=== PATIENT | female | born 1980 | race Caucasian/White ===

== ENCOUNTER → 2022-11-11 09:15 | Outpatient (CLI) | payer OTHER, SELFPAY ==
--- NOTE | ~2022-11-11 | US_ITS ---
Thyroid ultrasound. Clinical History: Thyroid enlargement Findings: Real-time sonography of the thyroid gland was performed. The right lobe measures 4.5 x 1.8 x 2.2 cm. The left lobe measures 4.9 x 2.2 x 1.7 cm. The isthmus is 7 mm in AP diameter. Thyroid parenchyma is heterogeneous. There is a 1.4 x 1.1 x 1.4 cm probable isoechoic solid nodule at the posterior left lower pole. Impression: 1.4 cm TR-3 nodule at the left lower pole. Consider 12 month follow-up ultrasound.. Reviewed, dictated and finalized at location . Impression: 1.4 cm TR-3 nodule at the left lower pole. Consider 12 month follow-up ultrasou nd..
== END ==
PROVIDERS: PCP Family Medicine Sports Medicine; Visit Provider Chiropractor
DX: E04.9 Nontoxic goiter, unspecified (principal)
CPT/HCPCS: 76536

== ENCOUNTER 2024-07-01 17:49 | Emergency (ER) | payer OTHER, SELFPAY ==
[2024-07-01 17:50] VITALS: BP 213/102; PULSE 82; RESP 20; TEMP 36.3; O2SAT 100
--- NOTE | 2024-07-01 18:08 | ED.RECABL ---
HPI - Recheck/Abnormal Lab/Rx General Chief Complaint: Recheck/Abnormal Lab/Rx Stated Complaint: sent by PMD for HTN Time Seen by Provider: 07/01/24 18:02 Source: patient Mode of arrival: ambulatory Limitations: no limitations History of Present Illness HPI narrative: This is a 44-year-old female that presents to the emergency department for elevated blood pressure reading. Reports her blood pressures have been somewhat elevated in the past, but she has been trying to manage this with diet and exercise. She has not ever been on antihypertensives. Today her blood pressure was elevated at her gynecology appointment and they told her she should go to the ER for further evaluation. She does not have any symptoms currently. Denies chest pain, shortness of breath, headache. Related Data Allergies Allergy/AdvReac Type Severity Reaction Status Date / Time No Known Allergies Allergy Verified 07/01/24 17:49 Review of Systems Review of Systems: CONSTITUTIONAL: Denies fever CARDIOVASCULAR: Denies chest pain, or edema. RESPIRATORY: Denies dyspnea. NEUROLOGIC: Denies headache, numbness, or weakness. All systems reviewed & are unremarkable except as noted in HPI and below PMFSH Past Medical History Medical History (Updated 07/01/24 @ 19:23 by Shante Guzman PA-C) No active medical problems Social History Social History (Updated 07/01/24 @ 18:10 by Shante Guzman PA-C) Smoking status: Never smoker Exam Narrative: GENERAL: Well-appearing, well-nourished, and in no acute distress. HEAD: Normocephalic, atraumatic. EYES: EOMI. CHEST: Clear to auscultation. No respiratory distress. No wheezes rales or rhonchi HEART: Regular rate and rhythm. No murmur heard. Normal peripheral pulses. EXTREMITIES: Normal range of motion. No edema. SKIN: Warm, dry, no rash. NEURO: No focal deficits. Alert and oriented x3. PSYCH: Normal mood and affect Course Course Emergency Course: Patient updated on her workup and agrees with plan of care Consultations Consultation #1: Spoke with Dr. Frederick, PCP personal lines agent about patient and workup. Patient will be started on Losartan 25mg daily and will follow up in clinic. Date: 07/01/24 Vital Signs Vital signs: Vital Signs Temperature 97.4 F L 07/01/24 17:50 Pulse Rate 82 07/01/24 17:50 Respiratory Rate 20 07/01/24 17:50 Blood Pressure 213/102 H 07/01/24 17:50 Pulse Oximetry 100 07/01/24 17:50 Oxygen Delivery Room Air 07/01/24 17:50 Temperature 97.4 F L 07/01/24 17:50 Pulse Rate 84 07/01/24 18:30 Respiratory Rate 16 07/01/24 18:30 Blood Pressure 204/90 H 07/01/24 18:30 Pulse Oximetry 100 07/01/24 18:30 Oxygen Delivery Room Air 07/01/24 17:50 MDM - Recheck/Abnormal Lab/Rx MDM Narrative Medical decision making narrative: Patient presents to the ER for elevated blood pressure reading noted at gynecology office. Asymptomatic currently . No concerning findings on blood work or EKG. Spoke with Dr. Frederick, PCP personal lines agent about patient and workup. Patient will be started on Losartan 25mg daily and will follow up in clinic. She was given warnings to return to the ER Differential Diagnosis Differential diagnosis: Likely other (hypertension, elevated blood pressure reading, hypertensive urgency) Lab Data Attestation: I reviewed the patient's lab results. 07/01/24 18:20 07/01/24 18:20 Labs: Lab Results 07/01/24 Range/Units 18:20 WBC 7.4 (4.5-10.0) K/mm3 RBC 4.82 (4.2-5.4) M/mm3 Hgb 13.7 (12.0-15.0) g/dL Hct 40.7 (37.0-47.0) % MCV 84.4 (80-100) fl MCH 28.4 (26-34) pg MCHC 33.7 (32-36) g/dl RDW 14.0 (11.5-14.5) % Plt Count 337 (150-375) k/mm3 MPV 8.8 (7.4-10.4) fl Immature Gran % (Auto) 0.1 (0-0.5) % Neut % (Auto) 60.5 (45.5-73.1) % Lymph % (Auto) 30.5 (18.3-44.2) % [place] % (Auto) 6.8 (2.6-8.5) % Eos % (Auto) 1.6 (0-4.4) % Baso % (Auto) 0.5 (0.2-1.2) % Lymph # (Auto) 2.26 (0.9-3.2) K/mm3 [place] # (Auto) 0.5 (0.1-0.6) K/mm3 Eos # (Auto) 0.1 (0-0.3) K/mm3 Baso # (Auto) 0.0 (0.0-0.1) K/mm3 Abs Immat Gran (auto) 0.01 (0.00-0.031) K/mm3 Absolute Neuts (auto) 4.5 (1.3-6.7) K/mm3 Absolute Nucleated RBC 0.000 (0.0-0.012) K/mm3 Nucleated RBC % 0.0 (0.0-0.2) % Sodium 138 (137-145) mmol/L Potassium 3.7 (3.4-5.0) mmol/L Chloride 103 (98-107) mmol/L Carbon Dioxide 26 (22-30) mmol/L Anion Gap 9 (4-12) mmol/L BUN 12 (7-17) mg/dL Creatinine 0.65 L (0.7-1.0) mg/dL Estim Creat Clear Calc 90 ml/min Estimated GFR > 60 (59 - ) Glucose 138 H (65-110) mg/dL Calcium 9.1 (8.4-10.2) mg/dL Total Bilirubin 0.4 (0.2-1.3) mg/dL AST 23 (14-36) U/L ALT 26 (6-35) U/L Alkaline Phosphatase 86 (38-126) U/L Total Protein 8.0 (6.3-8.2) g/dL Albumin 4.5 (3.5-5.1) g/dL ECG Data EKG #1: ECG completion date: 07/01/24 EKG Interpretation: normal rate, sinus rhythm, no ST changes and normal QT Critical Care Time Critical Care Time Critical Care Time: No Discharge Plan Discharge Clinical Impression: Hypertension Qualifiers: Hypertension type: unspecified Qualified Code(s): I10 - Essential (primary) hypertension Patient Disposition: Home, Self-Care Condition: Improved Instructions: Hypertension (ED) Additional Instructions: Return to the emergency department if you experience fever, chest pain, shortness of breath, abdominal pain with nausea and vomiting, weakness, numbness, or any other symptoms that are concerning to you. Take losartan as prescribed Follow up with primary care doctor. Call in the morning to make an appointment Patient Language: Maori Prescriptions: New losartan 25 mg tablet 25 mg PO DAILY 30 Days Qty: 30 0RF Follow-up/Referrals: Radha,Malgorzata Crandall MD [Non-Staff] - Jcarlos Frederick MD [Physician] -
[2024-07-01 18:26] LABS: Basophils Percent Auto 0.5 % (0.2-1.2); Eosinophils Absolute Auto 0.1 K/mm3 (0-0.3); Eosinophils Percent Auto 1.6 % (0-4.4); Hematocrit 40.7 % (37.0-47.0); Hemoglobin 13.7 g/dL (12.0-15.0); Immature Granulocyte Absolute 0.01 K/mm3 (0.00-0.031); Immature Granulocyte Percent A 0.1 % (0-0.5); Lymphocytes Absolute Auto 2.26 K/mm3 (0.9-3.2); Lymphocytes Percent Auto 30.5 % (18.3-44.2); Mean Corpuscular HGB Conc 33.7 g/dl (32-36); Mean Corpuscular Hemoglobin 28.4 pg (26-34); Mean Corpuscular Volume 84.4 fl (80-100); Mean Platelet Volume 8.8 fl (7.4-10.4); Monocytes Absolute Auto 0.5 K/mm3 (0.1-0.6); Monocytes Percent Auto 6.8 % (2.6-8.5); Neutrophils Absolute Auto 4.5 K/mm3 (1.3-6.7); Neutrophils Percent Auto 60.5 % (45.5-73.1); Platelet Count Result 337 k/mm3 (150-375); Red Blood Count 4.82 M/mm3 (4.2-5.4); White Blood Count 7.4 K/mm3 (4.5-10.0)
[2024-07-01 18:30] VITALS: BP 204/90; PULSE 84; RESP 16; O2SAT 100
[2024-07-01 18:35] LABS: Alanine Aminotransferase 26 U/L (6-35); Albumin Level 4.5 g/dL (3.5-5.1); Alkaline Phosphatase 86 U/L (38-126); Anion Gap 9 mmol/L (4-12); Aspartate Amino Transferase 23 U/L (14-36); Bilirubin,Total 0.4 mg/dL (0.2-1.3); Blood Urea Nitrogen 12 mg/dL (7-17); Calcium 9.1 mg/dL (8.4-10.2); Carbon Dioxide 26 mmol/L (22-30); Chloride 103 mmol/L (98-107); Estimated CRCL calculation 90 ml/min; Estimated Glomerular Filt Rate > 60; Glucose 138 mg/dL (65-110); Potassium 3.7 mmol/L (3.4-5.0); Sodium 138 mmol/L (137-145)
[2024-07-01 19:20] VITALS: BP 163/90; PULSE 70; RESP 16; O2SAT 100
--- OUTSIDE RECORDS SUMMARY | 2024-07-03 20:15 | XMS_ITS | Referral Summary ---
Author Organization [facility] Address [address] [place] [address] Care Team Providers Care Astrobiologist Name Role Phone Malgorzata Garcia MD Primary Care Provider Encounters Date Type Department Care Team Description 07/01/2024 Nurse Triage [facility] Primary Care at [address] [address] Malgorzata Garcia MD from Last 3 Months Allergies Active Allergy Reactions Criticality Noted Date Comments Buspirone Nausea only Low 04/28/2022 Severe nausea Citalopram Nausea only Low 08/18/2020 Medications hydrOXYzine (ATARAX) 25 mg tabletIndicatio ns:anxiety Take 1 tablet (25 mg total) by mouth every 8 (eight) hours as needed for anxiety 60 tablet 2 1 Active diclofenac (CATAFLAM) 50 mg tabletIndicatio ns:Sebaceous cyst of right axilla Take 1 tablet (50 mg total) by mouth 3 (three) times a day 2 Active mometasone (ELOCON) 0.1 % ointmentIndicat ions:Poison rukhsana Apply topically daily To poison rukhsana rash. May need to apply for 2 weeks until allergic reaction resolves 45 g 1 3 Active Active Problems Problem Noted Date Diagnosed Date Elevated TSH 12/05/2022 Overview (12/05/2022): With high free t4. ?central hyperethyroidism Thyroid nodule 11/17/2022 Overview (11/17/2022): 1.4 cm TR 3 nodule of the left lower thyroid pole on thyroid ultrasound 11/11/2022 ordered by an outside provider. If no concerns with labs then recommendation would be 12 month follow-up ultrasound Sebaceous cyst of right axilla 04/13/2022 Prediabetes 08/18/2020 Overview (08/18/2020): 08/2020 - HgbA1c 6.4 Assessment & Plan (08/18/2020 4:41 PM MEDICAL PHYSICS RESEARCHER): 08/2020 - HgbA1c 6.4; glu 177 Drinks two Pepsis a day recommend at least 10 minutes of moderate intensity exercise most days of the week with a goal of 150 minutes weekly. For significant weight loss - recommend 250 minutes a week of moderate intensity exercise. Recommend fruits and vegetables, lean meats, and whole grains. Avoid all sugary beverages Try to limit processed foods. Avoid things in crinkly wrapping papers. Try for 3 healthy meals daily and watch portion sizes. Limit screen time (including T.V., tablet, computer, AND smart phone) to less than 2 hours daily Discussed consideration of starting metformin, but she declined Hypersomnia 08/18/2020 Assessment & Plan (08/18/2020 4:43 PM MEDICAL PHYSICS RESEARCHER): epworth score 8-9 persistent complaints of extreme daytime fatigue Discussed sleep study [email or web address]/patients/patient-resources/resources/remvlpx-gzzvt-up-a dults .pdf [email or web address].org/patients/patient-resources/resources/sleep-studies.pdf She will consider calling insurance to look into out of pocket expense Discussed sleep hygiene - no screen time within 1 hour of bed. Prehypertension 03/22/2020 Assessment & Plan (08/18/2020 4:40 PM MEDICAL PHYSICS RESEARCHER): Improved today, but still elevated Will continue to monitor Assessment & Plan (07/08/2020 5:12 PM MEDICAL PHYSICS RESEARCHER): BP still elevated. CBC, CMP normal 03/29/2020 other than glucose 120 mg/dl Patient continues to report controlled BP on home readings Assessment & Plan (05/04/2020 4:56 PM MEDICAL PHYSICS RESEARCHER): BP still elevated. CBC, CMP normal 03/29/2020 other than glucose 120 mg/dl STOP BANG score 2, although very clsoe to 3 as her BMI is 34. Discussed possibility with patient, but she does not think that she has BECKY. Provided handout for further information [email or web address]/patients/patient-resources/resources/obstructive-sleep- apnea -in-adults.pdf Assessment & Plan (03/22/2020 5:25 PM CDT): Stop OTC decongestant Antihistamine and steroid nose spray instead Labs today to eval blood count, renal fxn Follow-up for recehck Class 1 obesity due to exces s calories without serious comorbidity with body mass index (BMI) of 33.0 to 33.9 in adult 08/07/2017 Assessment & Plan (08/18/2020 4:02 PM MEDICAL PHYSICS RESEARCHER): Body mass index is 34.22 kg/m??. Discussed exercise, sleep hygiene, decreased salt intake Assessment & Plan (07/08/2020 5:09 PM MEDICAL PHYSICS RESEARCHER): discussed healthy diet, exercise and adequate sleep Body mass index is 34.6 kg/m??. Assessment & Plan (05/04/2020 4:53 PM MEDICAL PHYSICS RESEARCHER): Body mass index is 34.22 kg/m??. Discussed exercise, sleep hygiene, decreased salt intake Assessment & Plan (03/22/2020 4:02 PM CDT): discussed healthy diet, exercise and adequate sleep Body mass index is 33.73 kg/m??. Assessment & Plan (11/08/2017 3:54 PM CDT): Obesity is unchanged. Discussed the patient's BMI. The BMI is above average; BMI management plan is completed. General weight loss/lifestyle modification strategies discussed (elicit support from others; identify saboteurs; non-food rewards, etc). Body mass index is 31.18 kg/m??. Assessment & Plan (08/07/2017 3:48 PM MEDICAL PHYSICS RESEARCHER): Obesity is unchanged. Discussed the patient's BMI. The BMI is above average; BMI management plan is completed. General weight loss/lifestyle modification strategies discussed (elicit support from others; identify saboteurs; non-food rewards, etc). Body mass index is 30.99 kg/m??. Generalized anxiety disorder 04/26/2016 Assessment & Plan (08/18/2020 4:42 PM MEDICAL PHYSICS RESEARCHER): Symptoms limiting IADLs (has not driven for 10 years due to anxiety) Some improvement with buspirone, but has difficulty taking it twice daily Will add hydroxyzine I do think she should stay on the daily buspirone as her anxiety symptoms are severe Provided a list of counselors. She is hesitant due to cost Assessment & Plan (05/04/2020 4:55 PM MEDICAL PHYSICS RESEARCHER): Gastrointestinal side effects to celexa Buspirone started last office visit. Increased 04/13/2020 Patient has declined counseling No side effects to medication, but no positive effect either She declines further increase at this time Assessment & Plan (03/22/2020 5:24 PM CDT): Gastrointestinal side effects to celexa Will try buspirone Start low dose to avoid side effects Patient to call for any issues with medication or to increase dose. Assessment & Plan (09/22/2019 10:01 AM CDT): History of similar with good response to celexa Worse now with the current social situation. OK to continue the melatonin. Patient to call us if her symptoms worsen or do not improve Resolved Problems Problem Noted Date Diagnosed Date Resolved Date Chest wall pain 07/08/2020 04/28/2022 Assessment & Plan (08/18/2020 4:44 PM MEDICAL PHYSICS RESEARCHER): Onset last May 2020 or early Jun 2020 No injury Improving Unable to reproduce on exam. EKG, CXR normal Likely musculoskeletal monitor Assessment & Plan (07/08/2020 5:15 PM MEDICAL PHYSICS RESEARCHER): Left lower Acute onset, no injury or preceding URI No assoc N/V/D or GERD symptoms. Worse with leaning forward; better with laying down. EKG and CXR normal today DDx costochondritis; shingles w/out rash; thoracic radiculopathy; GERD; pleural effusion With normal CXR and no GI symptoms, will presume musculoskeletal and recommend trial of NSAIDs and heat/ice monitor Subclinical hypothyroidism 03/18/2020 0 12/05/2022 Assessment & Plan (08/18/2020 4:39 PM MEDICAL PHYSICS RESEARCHER): 03/17/2020 - TSH 8.940 (0.45 - 4.5); fT4 1.73 (0.82 - 1.77) 08/2020 - TSH 4.660 (H); fT4 1.45 (0.82 - 1.77) TPO Ab 230 (0 - 34) TSH is approaching normal Her fatigue could certainly be considered a symptom of hypothyroidism, but with her TSH only being mildly elevated, and the fT4 being normal, I do not think it is the cause I do recommend continuing to monitor Assessment & Plan (05/04/2020 4:54 PM MEDICAL PHYSICS RESEARCHER): 03/17/2020 - TSH 8.940 (0.45 - 4.5) fT4 1.73 (0.82 - 1.77) Discussed diagnosis Patient would like to recheck Assessment & Plan (03/22/2020 5:26 PM CDT): 03/17/2020 - TSH 8.940 (0.45 - 4.5) fT4 1.73 (0.82 - 1.77) Discussed diagnosis No medication indicated at this time Monitor annually Contact dermatitis 11/08/2017 Assessment & Plan (11/08/2017 3:54 PM CDT): Versus eczema Use the triamcinolone ointment 3 times a day every day for 10 days Keep area clean with a gentle soap The only thing that can touch that area on your forearm is petroleum jelly Call if there is no improvement or if there is worsening at any time Neck muscle spasm 08/07/2017 11/08/2017 Assessment & Plan (08/07/2017 9:31 PM MEDICAL PHYSICS RESEARCHER): High risk occupation Recommend ice OR heat to affected area. 20 minutes at a time, 2-3 times a day. NSAIDs Muscle relaxer Home stretching and strenghtening- handout given Consider PT if persistent. Non-smoker 04/26/2016 10/12/2017 Immunizations Name Administration Dates Next Due Influenza, Quadrivalent, Spl it, Preservative Free, Intradermal 03/11/2015 Influenza, Quadrivalent, Spl it, Preservative Free, Intramuscular 03/22/2020 Influenza, Unspecified 04/14/2022,2016(Deferred: Patient decision) Rho (D) Immune Globulin 07/13/2015 Tdap 05/13/2015 Social History Tobacco Use Types Packs/Day Years Used Date Smoking Tobacco: Never Smokeless Tobacco: Never Alcohol Use Standard Drinks/Week Comments No 0 (1 standard drink = 0.6 oz pur e alcohol) AUDIT-C Answer Date Recorded Q1: How often do you have a drink containing alcohol? Never 04/28/2022 Q2: How many drinks containi ng alcohol do you have on a typical day when you are drinking? Patient does not drink Q3: How often do you have si x or more drinks on one occasion? Never 04/28/2022 PHQ-2 Answer Date Recorded PHQ-2 Total Score (If total score is 3 or more points, staff should administer the PHQ-9) 0 04/28/2022 Personal Safety Answer Date Recorded Getting School Help Needed Not on file 05/26 Comments No Sex and Gender Information Value Date Recorded Sex Assigned at Not on file Legal Sex Female 4:12 AM MEDICAL PHYSICS RESEARCHER Gender Identity Not on file Sexual Orientation Not on file Last Filed Vital Signs Vital Sign Reading Time Taken Comments Blood Pressure 130/88 04/28/2022 10:03 AM MEDICAL PHYSICS RESEARCHER Pulse 77 04/28/2022 10:03 AM MEDICAL PHYSICS RESEARCHER Temperature 36.8 ??C (98.3 ??F) 08/31/2021 9:57 AM CD T Respiratory Rate 16 08/31/2021 9:57 AM CDT Oxygen Saturation 98% 08/31/2021 9:57 AM CDT Inhaled Oxygen Concentration - - Weight 79.4 kg (175 lb) 04/28/2022 10:03 AM MEDICAL PHYSICS RESEARCHER Height 154.9 cm (5' 1 ) 04/28/2022 10:03 AM MEDICAL PHYSICS RESEARCHER Body Mass Index 33.07 04/28/2022 10:03 AM MEDICAL PHYSICS RESEARCHER Plan of Treatment Not on file Insurance [facility] CHOICE PLUS [facility] CHO[facility] PLUS [facility] CHOICE PLUS Care Teams Astrobiologist Relationship Specialty Start Date End Date Malgorzata Garcia MD PCP - General Family Practice 04/28/22
--- OUTSIDE RECORDS SUMMARY | 2024-07-03 20:15 | XMS_ITS | Data Portability ---
Author Organization [facility] [place] Address [address] [place] [address] [address] Care Team Providers Care Fish Icer Name Role Phone HUGO LUIS Primary Care Provider Assessment Encounter Date Assessment Date Assessment LastModified by Organization Details LastModified Time 07/01/2024 07/01/2024 Annual gynecological exam performed. Patient will come back in a year unless there are new symptoms. Not available 06/26/2024 14:34:42 Plan of Treatment Reminders Order Date Submit Date Provider Last Modified By Organization Details Last Modified Time Details Appointments U/S SYSTEMS INTEGRATION ADVISOR COMPLET E 2024 03:00P M ULTRASOUND Not available Not available Not available Lab pap, IG + HR HPV - HPV regardl ess but if HPV is positiv e need subtypi ng 16,18/4 5 2024 025 [facility] ([facility]), [address], [place], [address], 07/01/2024 16:03:35 Referral None recorde d. Procedures None recorde d. Surgeries None recorde d. Imaging US, pelvis 2023 024 [email or web address] [place], [address], [place], [address], 03/11/2024 17:57:05 US, transva ginal 2023 024 [email or web address] [place], [address], [place], [address], 03/11/2024 17:57:05 MAMMO, screeni ng, digital , bilater al 2024 025 [facility], [address], [place], [address], 07/01/2024 16:18:53 US, pelvis, complet e 2024 025 [email or web address] Not available 07/02/2024 09:02:19 US, pelvis 2024 025 [email or web address] [place], [address], [place], [address], 07/03/2024 21:13:52 US, transva ginal 2024 025 [email or web address] [place], [address], [place], [address], 07/03/2024 21:13:52 Medication Orders None recorde d. Patient TargetsNo targets recorded. Patient InstructionsNo instructions recorded. Reason for Referral None Reported. Results Created Date Observation Date Name Description Value Unit Range Abnormal Flag Note LastModifiedBy Organization Detail LastModifiedTime 03/11/2003/11/2024 US, pelvi s No observ ation record ed. [email or web address] [place] [address], [place], [address], 03/11/2024 17:15:21 03/11/20 24 03/11/2024 US, trans vagin al No observ ation record ed. [email or web address] [place] [address], [place], [address], 03/11/2024 17:15:30 03/11/20 24 03/11/2024 US, pelvi s No observ ation record ed. [email or web address] [address], [place], [address], 03/12/2024 09:51:10 07/03/19 25 07/03/2024 US, pelvi s No observ ation record ed. [email or web address] [place] [address], [place], [address], 07/03/2024 16:52:25 07/03/19 25 07/03/2024 US, trans vagin al No observ ation record ed. [email or web address] [place] [address], [place], [address], 07/03/2024 16:52:34 07/03/19 25 07/03/2024 US, pelvi s No observ ation record ed. [email or web address], [place], [address], 07/03/2024 16:55:55 Result Notes None recorded. Procedures Surgical History Date Name Laterality Status Provider Name and Address Organization Details Recorded Time 12/09/2022 Date of Last Pap Smear completed Rhina Moreno [facility] 02/29/2024 16:18:54 Imaging Results Imaging Date Name Status LastModified by Organization Details LastModified Time 03/11/2024 US, pelvis completed [email or web address] [place] [address], [place], [address], 03/11/2024 17:15:21 03/11/2024 [facility] transvaginal [email or web address] [address], [place], [address], 03/11/2024 17:15:30 03/11/2024 US, pelvis completed [email or web address] [address], [place], [address], 03/12/2024 09:51:10 07/03/2024 US, pelvis completed [email or web address] [place] [address], [place], [address], 07/03/2024 16:52:25 07/03/2024 US, transvaginal completed [email or web address] Fabiola [facility] [address], [place], [address], 07/03/2024 16:52:34 07/03/2024 US, pelvis active [email or web address], [place], [address], 07/03/2024 16:55:55 Procedure Notes None recorded. Medical Equipment None Reported. Allergies No known drug allergies Medications Name Sig Start Date Stop Date Status Note LastModified by Organization Details LastModified Time benzonatate 200 mg capsule 2024 completed Not Available Not Available Not Available Daily Fiber active Not Available Not A vailable Not Available Vitals Date Recorded Body weight Body mass index (BMI) Body height Systolic blood pressure Diastolic blood pressure Provider Name and Address Organization Details Last Updated DateTime 02/29/2024 57630.7 g 32.1 kg/m2 154.94 cm 132 mm[Hg] 82 mm[Hg] [facility] 4 16:24:48 Date Recorded Body height Body mass index (BMI) Body weight Systolic blood pressure Diastolic blood pressure Provider Name and Address Organization Details Last Updated DateTime 04/01/2024 154.94 cm 32.9 kg/m2 19260.07 g 152 mm[Hg] 88 mm[Hg] [facility] 4 16:30:06 Date Recorded Body height Body mass index (BMI) Body weight Systolic blood pressure Diastolic blood pressure Systolic blood pressure Diastolic blood pressure Systolic blood pressure Diastolic blood pressure Provider Name and Address Organization Details Last Updated DateTime 5 154.94 cm 33.5 kg/m2 22352.5 7 g 171 mm[Hg] 100 mm[Hg] 173 mm[Hg] 105 mm[Hg] 184 mm[Hg] 102 mm[Hg] Ada Simpson [facility] 5 15:59:07 Social History Question Answer Notes LastModified by Organizat ion Details LastModified Time What Is Your Level Of Alcohol Consumption? None [email or web address] Information not available 02/29/2024 Are You Blind Or Do You Have Difficulty Seeing? No [email or web address] Information n ot available 02/29/2024 What Is Your Level Of Caffeine Consumption? Moderate [email or web address] Information not available 02/29/2024 How Much Tobacco Do You Chew? None [email or web address] Information not available 02/29/2024 In The 14 Days Before Symptom Onset, Have You Had Close Contact With A Laboratory-confirm ed COVID-19 While That Case Was Ill? No [email or web address] Information n ot available 02/29/2024 In The 14 Days Before Symptom Onset, Have You Had Close Contact With A Person Who Is Under Investigation For COVID-19 While That Person Was Ill? No [email or web address] Information not available 02/29/2024 Have You Been To An Area Known To Be High Risk For COVID-19? No [email or web address] Information not available 02/29/2024 Are You Deaf Or Do You Have Serious Difficulty Hearing? No [email or web address] Information not available 02/29/2024 What Type Of Diet Are You Following? REGULAR [email or web address] Information n ot available 02/29/2024 What Is The Highest Grade Or Level Of School You Have Completed Or The Highest Degree You Have Received? 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 No [email or web address] Information not available 02/29/2024 Do You Use Protection During Sex? No [email or web address] Information not available 02/29/2024 Do You Use Your Seat Belt Or Car Seat Routinely? Yes [email or web address] Information not available 02/29/2024 Do You Have Smoke And Carbon Monoxide Detectors In Your Home? Yes [email or web address] Information not available 02/29/2024 How Much Tobacco Do You Smoke? No [email or web address] Information not available 02/29/2024 Do You Feel Stressed (tense, Restless, Nervous, Or Anxious, Or Unable To Sleep At Night)? [id number] Information not available 02/29/2024 Do You Use Any Illicit Or Recreational Drugs? No [email or web address] Information not available 02/29/2024 Do You Use Sunscreen Routinely? No [email or web address] Information not available 02/29/2024 Have You Used IV Drugs? No [email or web address] Information not available 02/29/2024 Sex: Unknown Functional Status Question Answer Note LastModified by Organizat ion Details LastModified Time Are you able to walk? YESWOREST [email or web address] Information not available 02/29/2024 What is your exercise level? Occasional [email or web address] Information not available 02/29/2024 Mental Status None recorded. Family History Relationship Description Onset Age of this Age Resolved Age Notes LastModified by Organization Details LastModified Time Maternal Aunt Diabetes mellitus [email or web address] Not available 2023 16:18:54 Maternal Uncle Diabetes mellitus [email or web address] Not available 2023 16:18:54 Medical History Condition Response Anxiety Disorder Y Gynecological History Statement/Question Response Date of Last Mammogram Flow Heavy Date of LMP 06/26/2024 On BCP's at Conception? N N Was last menstrual period normal Y STIs/STDs N HPV Vaccine N Duration of Flow (days) 6 Current Control Method Partner Vas ectomy Age at First Child 35 Frequency of Cycle (Q days) 28 Sexually Active? Y None Age of first menstrual cycle 11 Date of Last Pap Smear 12/09/2022 Sexual Problems? N Desired Control Method None LMP Definite N Obstetrics History GPAL:G 0 P 0 0 0 0 Past Encounters Encounter ID Performer Location Encounter Start Date Encounter Closed Date Diagnosis/Indication Diagnosis SNOMED-CT Code Diagnosis ICD10 Code Diagnosis Note [id number] RICKY DOMINGO MD [place] [address] [address] 02/29/2024 16:09:43 03/01/2024 11:26:21 Pain in pelvis 80075121 R10.2 - patient reports recurrent episode of pelvic pain, last 1 year ago and now occuring x2 months- known hx of fibroids- no issues with irregular bleeding, bladder or bowel function- discussed possible etiology due to fibroid mass effect- will order pelvic US to reevaluate - briefly discussed expectant vs surgical vs medical management ; will discuss further at follow up visit- recommend NSAIDs to help with pain [id number] Olivia Goldman [place] [address] [address] 03/11/2024 15:51:12 03/12/2024 03:05:03 Pain in pelvis 30385552 R10.2 [id number] RICKY DOMINGO MD [place] [address] [address] 04/01/2024 16:24:17 04/02/2024 09:42:45 Pain in pelvis 82682431 R10.2 - patient reports recurrent episode of pelvic pain, last 1 year ago and now occurring x2 months, currently improving- no issues with irregular bleeding, bladder or bowel function- pelvic US demonstrat es hemorrhagi c cyst, likely cyst rupture at time of pain and resolving pain now that blood is resorbing- repeat US in 3 months to reevaluate .- Discussed trial of slynd or nexstellis (hx of breast tenderness with estrogen) for ovulation suppressio n to decrease risk of recurrence ; patient declines at this time, to call clinic if she desires to start medical management . [id number] JOHN LEO NP [place] [address] [address] 07/01/2024 15:11:42 07/01/2024 16:18:53 Elevated blood-pressure reading without diagnosis of hypertension 005473725 R03.0 Discussed elevated BP readings today.Shawnee ent denied hx of HTN.Pt denied SOB, chest pain, dizziness, palpitatio ns, severe headache. Discussed that if pt experience s these symptoms with elevated BP then she needs to go to the ER.Recomme nded hat patient obtain BP cuff and check BP twice daily and record readings.P atient to call PCP today and f/u with PCP regarding elevated BP readings.P atient to call office if she cannot get appointmen t with PCP within the next week as she may RTO for BP check at our office. Pt verbalized understand ing. Screening mammography 24 605754 Z12.31 Pain in pelvis 44475705 R10.2 Repeat TVUS ordered; previous pelvic U/S in 2023 demonstrat ed hemorrhagi c cyst and two uterine fibroids.T kevan we discussed multiple options for menorrhagi a/dysmenor edilson including: hormonal IUDs, Patch, Ring, Pills, Nexplanon, Lysteda; Endometria l ablation (requires MD consult). We discussed if any are contraindi cated with her current health Hx.Patient would like to continue to monitor symptoms at this time and call if she wants to pursue any of the treatment options.Wi ll f/u with pelvic u/s results. Premenstru al tension syndrome 74822874 N94.3 Discussed PMDD vs PMS diagnosis, clinical features, and treatment options.Di scussed treatment with cyclical vs continous SSRIs, and/or with COCs (Pmaela).Shawnee ent interested in trying both SSRI and ROYA therapy since previous SSRI therapy alone did not help her sx. Patient has been counseled regarding risks/bene fits/AEs of both.Shawneee nt declined treatment at this time.Provi ded patient with DRSP form to keep track of symptom timing throughout the month.Inst ructed patient to report any suicidal/h omicidal ideation immediatel y and go to the ER. Patient verbalized understand ing. Gynecologi c examination 57056511 Z01.419 Annual gynecologi dalia exam performed. Patient will come back in a year unless there are new symptoms. Suggest Calcium with Vitamin D if not eating in diet. Patient advised to get annual flu shot. Recommend yearly physicals and perform monthly breast exams. Genetic testing is available for patients with family history of cancer. Engage in safe sexual practices, use condoms. Encouraged to have daily exercise. Avoid tobacco and illicit drugs, moderation of alcohol. If BMI greater than 25 dietary consult advised. If you have any questions please call or email. mammogram- DUE; order given, pt to schedule colon cancer screening - Due at age 45 DEXA scan- n/a Pap smear- pap w/ HPV collected laboratory evaluation - PCP STI testing - declined [id number] Olivia [facility] [address] [address] 07/03/2024 15:51:30 07/03/2024 16:52:28 Pain in pelvis 86224070 R10.2 Health Concerns Section Related Observation LastModified by Organization Detai ls LastModified Time None Recorded Concern Status LastModified by Organization Details LastModified Time None Recorded Advance Directives Directive None Recorded Payers Encounter Date Sequence Insurance Name Policy Number Policy Medeiros Covered Member ID Medeiros Member ID Guarantor Name 02/29/2024 1 [facility] Fernando Felix [id number] Kenia Felix 03/11/2024 1 [facility] Fernando Felix [id number] Kenia Felix 04/01/2024 1 [facility] Fernando Felix [id number] Kenia Felix 07/01/2024 1 [facility] Fernando Felix [id number] Kenia Felix 07/03/2024 1 [facility] Fernando Felix [id number] Kenia Felix Notes Date Note Type Note Provider Name and Address Organization Details Recorded Time 02/29/2024 text/html Patient presents to establish care and discuss pelvic pain or pressure. She reports 2 month episode of pelvic pain and pressure, after a similar episode last year. No aggravating or relieving factors. She had a history of fibroids found on ultrasound last year. Periods are regular, 3 heavy days with heavy cramping. She has been on control in the past, control patch, however had side effects such as breast tenderness. Her partner has a vasectomy. She has not been on hormonal contraception in 8 years. RICKY DOMINGO MD [address], [place], [address], [facility] 02/29/2024 17:39:22 04/01/2024 text/html Patient presents for US follow up. Previously seen for 2 month hx of pelvic pain, sudden onset. No known inciting factors. Reports pain improved, minimal at this time. She has had one similar episode 1 year ago that self resolved. No abnormal bleeding or bloating. No other symptoms. RICKY DOMINGO MD [address], [place], [address], [facility] 04/02/2024 00:14:22 07/01/2024 text/html Annual GYNReport ed bypatient.Menstrual cycle:Severe dysmenorrhea;Menorr hagia Urinary symptoms:No hematuria; No incontinence Vulva:No genital lesion Vagina:Normal vaginal discharge Breast:No breast pain; No breast lump; No nipple discharge Current Contraception:Partn er had vasectomy Sexual complaints:No sexual complaints; No pain during intercourse; Normal libido Menopausal Symptoms:No menopausal symptoms; Normal vaginal lubrication Psychological symptoms:No depression;Anxiety; PMDD prior to menstruation (3-10 days) Preventive measures:Encourage self breast examination; Encourage regular exercise; Encourage no tobacco use; Encourage regular mammograms starting age 40 Patient presents for annual well woman exam.Patient reports right and left sided pelvic cramping for a few days before period and during period. Takes Midol or Aleve as needed. Patient uses a tampon and pad every 2-3 hours for first 3 days on heavy days, periods last 5-6 days every 28 days.Patient had pelvic u/s three months ago for pelvic pain that showed 2 fibroids and hemorrhagic cyst. Patient due for repeat TVUS. Patient states that the pain has overall improved since then.Patient notes feelings of anger, mood swings, anxiety, fatigue, difficulty concentrating, and breast tenderness for 3-5 days before and during her period.Patient not interested in hormonal BC to help with symptoms as her had a vasectomy and she felt that COCs caused worsened anxiety in the past. JOHN LEO, PRABHJOT [address], [place], [address], [place] [facility] 07/01/2024 16:17:38 OBGyn Episode No OBEpisode recorded.
--- OUTSIDE RECORDS SUMMARY | 2024-07-03 20:15 | XMS_ITS | Clinical Summary ---
Author Organization [facility] Address [address] [place] [address] Care Team Providers Care Cad Intern Name Role Phone Malgorzata Garcia MD Primary Care Provider Allergies Active Allergy Reactions Criticality Noted Date [...] 6.4 Assessment & Plan (08/18/2020 4:41 PM TIN ROOFER): 08/2020 - HgbA1c 6.4; glu 177 Drinks [...] 08/18/2020 Assessment & Plan (08/18/2020 4:43 PM TIN ROOFER): epworth score 8-9 persistent complaints of extreme daytime fatigue Discussed sleep study https://www.thoracic.org/patients/patient-resources/resources/ykrfwgp-tmhnd-fl-a dults .pdf https://www.thoracic.org/patients/patient-resources/resources/sleep-studies.pdf She will consider calling insurance to look into out of pocket expense Discussed sleep hygiene - no screen time within 1 hour of bed. Prehypertension 03/22/2020 Assessment & Plan (08/18/2020 4:40 PM TIN ROOFER): Improved today, but still elevated Will continue to monitor Assessment & Plan (07/08/2020 5:12 PM TIN ROOFER): BP still elevated. CBC, CMP normal 03/29/2020 other than glucose 120 mg/dl Patient continues to report controlled BP on home readings Assessment & Plan (05/04/2020 4:56 PM TIN ROOFER): BP still elevated. CBC, CMP normal 03/29/2020 [...] 08/07/2017 Assessment & Plan (08/18/2020 4:02 PM TIN ROOFER): Body mass index is 34.22 kg/m??. Discussed exercise, sleep hygiene, decreased salt intake Assessment & Plan (07/08/2020 5:09 PM TIN ROOFER): discussed healthy diet, exercise and adequate sleep Body mass index is 34.6 kg/m??. Assessment & Plan (05/04/2020 4:53 PM TIN ROOFER): Body mass index is 34.22 kg/m??. Discussed [...] kg/m??. Assessment & Plan (08/07/2017 3:48 PM TIN ROOFER): Obesity is unchanged. Discussed the patient's BMI. The BMI is above average; BMI management plan is completed. General weight loss/lifestyle modification strategies discussed (elicit support from others; identify saboteurs; non-food rewards, etc). Body mass index is 30.99 kg/m??. Generalized anxiety disorder 04/26/2016 Assessment & Plan (08/18/2020 4:42 PM TIN ROOFER): Symptoms limiting IADLs (has not driven for 10 years due to anxiety) Some improvement with buspirone, but has difficulty taking it twice daily Will add hydroxyzine I do think she should stay on the daily buspirone as her anxiety symptoms are severe Provided a list of counselors. She is hesitant due to cost Assessment & Plan (05/04/2020 4:55 PM TIN ROOFER): Gastrointestinal side effects to celexa Buspirone started [...] 04/28/2022 Assessment & Plan (08/18/2020 4:44 PM TIN ROOFER): Onset last May 2020 or early Jun 2020 No injury Improving Unable to reproduce on exam. EKG, CXR normal Likely musculoskeletal monitor Assessment & Plan (07/08/2020 5:15 PM TIN ROOFER): Left lower Acute onset, no injury or [...] 12/05/2022 Assessment & Plan (08/18/2020 4:39 PM TIN ROOFER): 03/17/2020 - TSH 8.940 (0.45 - 4.5); [...] monitor Assessment & Plan (05/04/2020 4:54 PM TIN ROOFER): 03/17/2020 - TSH 8.940 (0.45 - 4.5) [...] 11/08/2017 Assessment & Plan (08/07/2017 9:31 PM TIN ROOFER): High risk occupation Recommend ice OR heat to affected area. 20 minutes at a time, 2-3 times a day. NSAIDs Muscle relaxer Home stretching and strenghtening- handout given Consider PT if persistent. Non-smoker 04/26/2016 10/12/2017 Encounters Date Type Department Care Team Description 07/01/2024 Nurse Triage [facility] Primary Care at [address] [address] Malgorzata Garcia MD from Last 3 Months Immunizations Name Administration Dates Next Due Influenza, Quadrivalent, Spl it, Preservative Free, Intradermal 03/11/2015 Influenza, Quadrivalent, Spl it, Preservative Free, Intramuscular 03/22/2020 Influenza, Unspecified 04/14/2022,2016(Deferred: Patient decision) Rho (D) Immune Globulin 07/13/2015 Tdap 05/13/2015 Surgical History Surgery Date Site/Laterality Comments WISDOM TOOTH EXTRACTION Medical History Medical History Date Comments Anxiety Prediabetes 08/16/2020 Family History Medical History Relation Name Comments Other Brother colon ruptured; No Known Problems Daughter Heart attack Father Taiwo Pearson Seizures Father Taiwo Pearson Coronary artery disease Father's Sister 1 Diabetes type II Father's Sister 1 Coronary artery disease Father's Sister 2 Diabetes type II Father's Sister 2 COPD Mother Corine [place] Breast cancer Neg Hx Colon cancer Neg Hx Ovarian cancer Neg Hx Relation Name Status Comments Brother Alive Daughter Alive Father Taiwo Pearson Father's Sister 1 Other Father's Sister 2 Alive Mother Corine Tolliver Social History Tobacco Use Types Packs/Day Years [...] on file Legal Sex Female 4:12 AM TIN ROOFER Gender Identity Not on file Sexual Orientation Not on file Obstetrics History Para Term AB IAB SAB Ectopic Multiple Livin g Live Births 1 1 1 1 1 Date Outcome GA Total Labor Labor/2nd/3rd Weight Sex Type Anes PTL Angela A1 A5 Name Clin 2015 Term 39w 2d 14h 52m 11h 45m/2h 59m/0h 08m 3.147 kg (6 lb 15 oz) F Vag-S pont Epidur al N Livin g [address] Parker Complications: Intolera nce Delivery Location:[facility] Comments:No observed a nomalies Last Filed Vital Signs Vital Sign Reading Time Taken Comments Blood Pressure 130/88 04/28/2022 10:03 AM TIN ROOFER Pulse 77 04/28/2022 10:03 AM TIN ROOFER Temperature 36.8 ??C (98.3 ??F) 08/31/2021 9:57 AM CD T Respiratory Rate 16 08/31/2021 9:57 AM CDT Oxygen Saturation 98% 08/31/2021 9:57 AM CDT Inhaled Oxygen Concentration - - Weight 79.4 kg (175 lb) 04/28/2022 10:03 AM TIN ROOFER Height 154.9 cm (5' 1 ) 04/28/2022 10:03 AM TIN ROOFER Body Mass Index 33.07 04/28/2022 10:03 AM TIN ROOFER Plan of Treatment Health Maintenance Due Date Last Done Comments Breast Cancer Screening-Mammogram 1980 Cervical Cancer Screening 1980 Hepatitis C Screening 1980 Hepatitis B Screening 1998 Depression Screening 04/28/2023 04/28/2022, 08/18/2020, 08/18/2020, Additional history exists Regular Well Visit/Exam 18-64 04/28/2023 04/28/2022 Covid-19 Vaccine ( season) 2024 09/26/2020, 09/05/2020 Influenza Vaccine (#1) 2024 2, 03/22/2020, 03/11/2015 DTaP/Tdap/Td Vaccine (2 - Td or Tdap) 05/13/2025 05/13/2015 HPV Vaccines Aged Out No longer eligi ble based on patient's age to complete this topic Pneumococcal vaccine <65 Aged Out No longer eligible based on patient's age to complete this topic Varicella Vaccines Discontinued Insurance [facility] PL[facility] PL[facility] Care Teams Cad Intern Relationship Specialty Start Date End Date Malgorzata Garcia MD PCP - General Family Practice 04/28/22
--- OUTSIDE RECORDS SUMMARY | 2024-07-03 20:15 | XMS_ITS | Encounter Summary ---
Author Organization [facility] Healthcare Address [address] [place] [address] Care Team Providers Care Electromedical Service Engineer Name Role Phone Malgorzata Garcia MD Primary Care Provider Reason for Visit * Reason Onset Date Comments Hypertension 07/01/2024 Encounter Details Date Type Department Care Team (Late st Contact Info) Description 07/01/2024 Nurse Triage [facility] Primary Care at [address] [address] Malgorzata Garcia MD [address] [place] [address] [address] [place] [address] Social History Tobacco Use Types Packs/Day Years [...] on file Legal Sex Female 4:12 AM DUAL RATE SUPERVISOR Gender Identity Not on file Sexual Orientation Not on file documented as of this encounter Miscellaneous Notes * Telephone Encounter - Vivian Redding RN - 07/01/2024 4:19 PM CST Pt was seen in OB today. BP was 180/102. 164/102 at home about 30 min ago. While on phone BP was 216/124. Repeated again and same. HR 81. Pt denies CP, SOB, HYMAN, or vision changes. Pt advised ED due to elevated BP. Advised to call after ED visit to obtain INFORMIX DEVELOPER appt with a new provider. Will forward as FYI Reason for Disposition [1] Systolic BP >= 200 OR Diastolic >= 120 AND [2] having NO cardiac or neurologic symptoms Protocols used: Blood Pressure - [id number] RATE SUPERVISOR * Telephone Encounter - Vivian Redding RN - 07/01/2024 4:14 PM CST Regarding: high blood pressure ----- Message from Elizabeth A sent at 07/01/2024 4:11 PM DUAL RATE SUPERVISOR ----- Symptom Based Call Chief Complaint(s): high blood pressure of 180/102 then 164/? Duration: this afternoon What type of symptom(s) is the patient experiencing? Red Flag. Is the patient concerned they are experiencing a medical emergency requiring an ambulance? No Additional Comments: Had OBGYN appointment earlier today and that was when blood pressure was firsttaken. Patient made aware that provider has disengaged (was not aware). Sending to certified recreational therapist per disengagement plan Does message need to be routed? Yes-Action Needed RATE SUPERVISOR documented in this encounter Plan of Treatment Not on file documented as of this encounter Visit Diagnoses Not on filedocumented in this encounter Care Teams Electromedical Service Engineer Relationship Specialty Start Date End Date Malgorzata Garcia MD PCP - General Family Practice 04/28/22 documented as of this encounter
--- OUTSIDE RECORDS SUMMARY | 2024-07-03 20:15 | XMS_ITS | Continuity of Care Document ---
Author Organization [facility] [place] Address [address] [place] [address] Care Team Providers Care Company Laundry Worker Name Role Phone HUGO LUIS Primary Care Provider [phone] Assessment Encounter Date Assessment Date Assessment LastModified by Organization Details LastModified Time 07/01/2024 07/01/2024 Annual gynecological exam performed. Patient will come back in a year unless there are new symptoms. [email or web address] Not available 06/26/2024 14:34:42 Plan of Treatment Reminders Order Date Submit Date Provider Last Modified By Organization Details Last Modified Time Details Appointments U/S CERTIFIED PHARMACY TECHNICIAN COMPLET E 2024 03:00P M ULTRASOUND Not available Not available Not available Lab pap, IG + HR HPV - HPV regardl ess but if HPV is positiv e need subtypi ng 16,18/4 5 2024 025 [facility] (Lab), [address], [place], [address], 07/01/2024 16:03:35 Referral None recorde d. Procedures None recorde d. Surgeries None recorde d. Imaging MAMMO, screeni ng, digital , bilater al 2024 025 [facility], [address], [place], [address], 07/01/2024 16:18:53 US, pelvis, complet e 2024 025 [email or web address] Not available 07/02/2024 09:02:19 Medication Orders None recorde d. Patient TargetsNo targets recorded. Patient InstructionsNo instructions recorded. Reason for Referral None Reported. Results Created Date Observation Date Name Description Value Unit Range Abnormal Flag Note LastModifiedBy Organization Detail LastModifiedTime 07/03/1907/03/2024 US, pelvi s No observ ation record ed. [email or web address] [place] [address], [place], [address], 07/03/2024 16:52:25 07/03/19 25 07/03/2024 US, trans vagin al No observ ation record ed. [email or web address] [place] [address], [place], [address], 07/03/2024 16:52:34 07/03/1907/03/2024 US, pelvi s No observ ation record ed. [id number], [place], [address], 07/03/2024 16:55:55 Result Notes None recorded. Procedures Surgical History Date Name Laterality Status Provider Name and Address Organization Details Recorded Time 12/09/2022 Date of Last Pap Smear completed Rhina Moreno [facility] 02/29/2024 16:18:54 Imaging Results None recorded. Procedure Notes None recorded. Medical Equipment None Reported. Allergies No known drug allergies Medications Name Sig Start Date Stop Date Status Note LastModified by Organization Details LastModified Time benzonatate 200 mg capsule 2024 completed Not Available Not Available Not Available Daily Fiber active Not Available Not A vailable Not Available Vitals Date Recorded Body height Body mass index (BMI) Body weight Systolic blood pressure Diastolic blood pressure Systolic blood pressure Diastolic blood pressure Systolic blood pressure Diastolic blood pressure Provider Name and Address Organization Details Last Updated DateTime 5 154.94 cm 33.5 kg/m2 69998.5 7 g 171 mm[Hg] 100 mm[Hg] 173 mm[Hg] 105 mm[Hg] 184 mm[Hg] 102 mm[Hg] Ada Simpson [facility] 5 15:59:07 Social History Question Answer Notes LastModified by Organizat ion Details LastModified Time What Is Your Level Of Alcohol Consumption? None [email or web address] Information not available 02/29/2024 Are You Blind Or Do You Have Difficulty Seeing? No [email or web address] Information n ot available 02/29/2024 What Is Your Level Of Caffeine Consumption? Moderate [email or web address] Information not available 02/29/2024 How Much Tobacco Do You Chew? None [email or web address] Information not available 02/29/2024 In The 14 Days Before Symptom Onset, Have You Had Close Contact With A Laboratory-confirm ed COVID-19 While That Case Was Ill? No [email or web address] Information n ot available 02/29/2024 In The 14 Days Before Symptom Onset, Have You Had Close Contact With A Person Who Is Under Investigation For COVID-19 While That Person Was Ill? No [email or web address] Information not available 02/29/2024 Have You Been To An Area Known To Be High Risk For COVID-19? No [email or web address] Information not available 02/29/2024 Are You Deaf Or Do You Have Serious Difficulty Hearing? No [email or web address] Information not available 02/29/2024 What Type Of Diet Are You Following? REGULAR [email or web address] Information n ot available 02/29/2024 What Is The Highest Grade Or Level Of School You Have Completed Or The Highest Degree You Have Received? 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 No [email or web address] Information not available 02/29/2024 Do You Use Protection During Sex? No [email or web address] Information not available 02/29/2024 Do You Use Your Seat Belt Or Car Seat Routinely? Yes Information not available 02/29/2024 Do You Have Smoke And Carbon Monoxide Detectors In Your Home? Yes [email or web address] Information not available 02/29/2024 How Much Tobacco Do You Smoke? No [email or web address] Information not available 02/29/2024 Do You Feel Stressed (tense, Restless, Nervous, Or Anxious, Or Unable To Sleep At Night)? [id number] Information not available 02/29/2024 Do You Use Any Illicit Or Recreational Drugs? No [email or web address] Information not available 02/29/2024 Do You Use Sunscreen Routinely? No [email or web address] Information not available 02/29/2024 Have You Used IV Drugs? No [email or web address] Information not available 02/29/2024 Sex: Unknown Functional Status Question Answer Note LastModified by Organizat ion Details LastModified Time Are you able to walk? YESWOREST [email or web address] Information not available 02/29/2024 What is your exercise level? Occasional [email or web address] Information not available 02/29/2024 Mental Status None recorded. Family History Relationship Description Onset Age of this Age Resolved Age Notes LastModified by Organization Details LastModified Time Maternal Aunt Diabetes mellitus [email or web address] Not available 2023 16:18:54 Maternal Uncle Diabetes mellitus [email or web address] Not available 2023 16:18:54 Medical History Condition [...] SNOMED-CT Code Diagnosis ICD10 Code Diagnosis Note [id number] JOHN LEO, PRABHJOT [place] [address] [address] 07/01/2024 15:11:42 07/01/2024 16:18:53 Elevated blood-pressure reading without diagnosis of hypertension 359205337 R03.0 Discussed elevated BP readings today.[place] ent [...] Pt verbalized understand ing. Screening mammography 24 210558 Z12.31 Pain in pelvis 50467703 R10.2 Repeat TVUS ordered; previous pelvic U/S [...] pelvic u/s results. Premenstru al tension syndrome [id number] N94.3 Discussed PMDD vs PMS diagnosis, clinical features, and treatment options.Di scussed treatment with cyclical vs continous SSRIs, and/or with COCs (Pamela).[place]awnee ent interested in trying both SSRI and ROYA therapy since previous SSRI therapy alone did not help her sx. Patient has been counseled regarding risks/bene fits/AEs of both.Patie nt declined treatment at this time.Provi ded patient with DRSP form to keep track of symptom timing throughout the month.Inst ructed patient to report any suicidal/h omicidal ideation immediatel y and go to the ER. Patient verbalized understand ing. Gynecologi c examination [id number] Z01.419 Annual gynecologi dalia exam performed. Patient [...] evaluation - PCP STI testing - declined Health Concerns Section Related Observation LastModified by Organization Detai ls LastModified Time None Recorded Concern Status LastModified by Organization Details LastModified Time None Recorded Payers Encounter Date Sequence Insurance Name Policy Number Policy Medeiros Covered Member ID Medeiros Member ID Guarantor Name 07/01/2024 1 [facility] Fernando Felix [id number] Kenia Felix Notes Date Note Type Note Provider Name and Address Organization Details Recorded Time 07/01/2024 text/html Annual GYNReport ed bypatient.Menstrua l cycle:Severe dysmenorrhea;Dipesh rhagia Urinary symptoms:No hematuria; No incontinence Vulva:No genital lesion Vagina:Normal vaginal discharge Breast:No breast pain; No breast lump; No nipple discharge Current Contraception:Part ner had vasectomy Sexual complaints:No sexual complaints; No pain during intercourse; Normal libido Menopausal Symptoms:No menopausal symptoms; Normal vaginal lubrication Psychological symptoms:No depression;Anxiety ;PMDD prior to menstruation (3-10 days) Preventive measures:Encourage [...] past. JOHN LEO, PRABHJOT [address], [place], [address], [place] - [facility] 07/01/2024 16:17:38 OBGyn Episode No OBEpisode recorded.
--- OUTSIDE RECORDS SUMMARY | 2024-07-03 20:15 | XMS_ITS | Clinical Summary ---
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 Impaired fasting glucose 09/26/2013 Elevated BP 06/27/2013 Resolved Problems Problem Noted Date Diagnosed Date Resolved Date SROM (1445), AROM forebag 00 55, pit, GBS+ (pcn), O- 07/12/2015 07/13/2015 Immunizations Immunization Administration Dates Next Due (ADACEL/BOOSTRIX)(10 YR UP) TDAP VACCINE, 0.5ML, IM 05/13/2015 Influenza Seasonal Unspecified Formulation IM Rho (D) IMMUNE GLOBULIN 1,500 UNIT(300 MCG) INJE CTION 07/13/2015 Family History Medical History Relation Name Comments Healthy Brother Heart Disease Father Other Father seizure disorde r Unknown Maternal Grandfather Unknown Maternal Grandmother Diabetes Mother prediabetes Unknown Paternal Grandfather Unknown Paternal Grandmother Relation Name Status Comments Brother Alive Father Maternal Grandfather Maternal Grandmother Mother Alive Paternal Grandfather Paternal Grandmother Social History Tobacco Use Types Packs/Day Years Used Date Smoking Tobacco: Never Tobacco Cessation:Counseling Given: Not Answered Alcohol Use Standard Drinks/Week Comments No 0 (1 standard drink = 0.6 oz pur e alcohol) Comments No Sex and Gender Information Value Date Recorded Sex Assigned at Not on file Legal Sex Female 2:40 PM DIRECTOR OF SECURITY Gender Identity Not on file Sexual Orientation Not on file Occupation Industry Job Start Date Job End Date Not on file Not on file Not on file Not on file Last Filed Vital Signs Vital Sign Reading Time Taken Comments Blood Pressure 132/78 03/08/2023 3:15 PM CDT Pulse 89 07/15/2015 6:59 AM DIRECTOR OF SECURITY Temperature 36.9 ??C (98.4 ??F) 07/15/2015 6:59 AM CS T Respiratory Rate 18 07/15/2015 6:59 AM DIRECTOR OF SECURITY Oxygen Saturation 100% 07/14/2015 8:15 PM DIRECTOR OF SECURITY Inhaled Oxygen Concentration - - Weight 78.5 kg (173 lb) 03/08/2023 3:15 PM CDT Height 153.9 cm (5' 0.6 ) 03/08/2023 3:15 PM CDT Body Mass Index 33.12 03/08/2023 3:15 PM CDT Plan of Treatment Health Maintenance Due Date Last Done Comments HEPATITIS B VACCINES (1 of 3 - 19+ 3-dose series) 1999 BREAST CANCER SCREENING 08/20/2023 08/19/2022 DTAP/TDAP/TD VACCINES (2 - Td or Tdap) 05/13/2025 05/13/2015 CERVICAL CANCER SCREENING 03/08/2026 03/08/2023 INFLUENZA VACCINE Completed 04/10/2024, , 03/22/2020, Additional history exists HPV VACCINES Aged Out No longer eligi ble based on patient's age to complete this topic Procedures Procedure Name Priority Date/Time Associated Diagnosis Comments CERV/VAG CYTO AGE BASED SCREEN PAP W CT/NG Routine 03/08/2023 3:44 PM CDT Pelvic pain in female Encounter for gynecological examination without abnormal finding Screening for cervical cancer Screening for STD (sexually transmitted disease) MAMMO 3D ALENA SCREEN BILAT W OR WO CAD Routine 08/19/2022 7:57 AM DIRECTOR OF SECURITY Visit for screening mammogram from Last 3 Months or Most Recently Relevant to Health Maintenance Results * CERV/VAG CYTO AGE BASED SCREEN PAP W CT/NG (03/08/2023 3:44 PM CDT) COMMENT (PAP): [facility] Comment: This order for age-based cervical cancer and STI screening follows ACOG guidelines(PB 168, 140, WQH327). See individual assays for performing site location. CLINICAL INFORMATION [facility] Comment:None given LAST MENSTRUAL PERIOD [facility] Comment:02/18/2023 PREV PAP: [facility] Comment:NONE GIVEN PREV BX: [facility] Comment:NONE GIVEN SOURCE [facility] Comment:Endocervix ADEQUACY: [facility] Comment: Satisfactory for evaluation. Endocervical/transformation zone component present. PAP INTERP [facility] Comment: Cytology Results: Negative for intraepithelial lesion or malignancy. COMMENT (PAP TEST) [facility] Comment: This Pap test has been evaluated with computer assisted technology. TOE PULLER: [facility] Comment: MEF, CT(ASCP) CT screening location: [place] [address] [place] [address] EXPLANATORY NOTE [facility] Comment: EXPLANATORY NOTE: The Pap is a screening test for cervical cancer. It is not a diagnostic test and is subject to false negative and false positive results. It is most reliable when a satisfactory sample, regularly obtained, is submitted with relevant clinical findings and history, and when the Pap result is evaluated along with historic and current clinical information. HPV E6/E7 Not Detected Not Detected [facility] Comment: Methodology: Physical Education Aide-Mediated Amplification This assay detects E6/E7 viral messenger RNA (mRNA) from 14 high-risk HPV types (16,18,31,33,35,39,45,51,52,56,58,59,66,68). Cervical sources are required for HPV testing. If a vaginal source from a patient who has had a total hysterectomy with removal of cervix was submitted, please contact the testing laboratory for alternative testing options. For additional information, please refer to http://education.PrintLess Plans/faq/KRZ866d8 (This link if provided for information/ educational purposes only.) C TRAC RNA NOT DETECTED NOT DETECTED [facility] N.GONORRHOEAE RNA, TMA NOT DETECTED NOT DETECTED [facility] COMMENT INFECTIOUS DISEASE [facility] Comment: The analytical performance characteristics of this assay, when used to test SurePath(TM) specimens have been determined by [facility]. The modifications have not been cleared or approved by the FDA. This assay has been validated pursuant to the CLIA regulations and is used for clinical purposes. For additional information, please refer to https://education.PrintLess Plans/faq/VXF152 (This link is being provided for information/ educational purposes only.) Test Performed at: [facility] [address] [place], [place] ??[address] James LAL Genital SWAB OF ENDOCERVIX / Unknown 03/08/2023 3:44 PM CDT 03/09/2023 3:57 AM CDT Sarah Izaguirre Keith DO PATHOLOGY/CYTOLOGY ORDERABLES Final Result [facility] [address] [phone] [facility] [address] [address] * MAMMO SCRN BILAT 3D ALENA W OR WO CAD (08/19/2022 7:57 AM DIRECTOR OF SECURITY) Anatomical Region Laterality Modality Breast Bilateral Mammography 08/19/2022 7:58 AM DIRECTOR OF SECURITY Impressions 08/19/2022 8:10 AM DIRECTOR OF SECURITY : ?? NO MAMMOGRAPHIC EVIDENCE OF MALIGNANCY. ?? OVERALL BIRADS CATEGORY:1 - negative. ??. ?? ROUTINE SCREENING MAMMOGRAPHY IS RECOMMENDED IN 12 MONTHS. A normal letter was sent to patient. ?? Narrative 08/19/2022 8:10 AM DIRECTOR OF SECURITY EXAM: MAMMO SCRN BILAT 3D ALENA W OR WO CAD STUDY DATE: 08/19/2022 7:57 AM CLINICAL INDICATION: 42 years old female presents for baseline screening mammography. ?? COMPARISON: None PROCEDURE: ??CC and MLO digital mammographic views of the bilateral breasts are obtained. Computer Aided Detection (CAD) was utilized. ?? Tomosynthesis was done with all views. ?? FINDINGS: ?? Breast Density: ??Heterogeneously dense, which may lower the sensitivity of mammography. Right breast: There are no spiculated masses, suspicious microcalcifications or areas of architectural distortion in the right breast. Left breast: There are no spiculated masses, suspicious microcalcifications or areas of architectural distortion in the left breast. Luana Browning MD MAMMO ORDERABLES Final Result from Last 3 Months or Most Recently Relevant to Health Maintenance Insurance Advance Directives For more information, please contact: [phone] * Full Code (Latest Code Status on File) Date Activated Date Inactivated Comments 07/13/2015 10:48 AM 07/15/2015 12:37 PM * Full Code Date Activated Date Inactivated Comments 07/12/2015 7:19 PM 07/13/2015 10:48 AM * Full Code Date Activated Date Inactivated Comments 07/12/2015 5:16 PM 07/12/2015 7:19 PM Care Teams Yeast Tender Relationship Specialty Start Date End Date Luana Browning MD PCP - General Internal Medicine 06/27/13
== END 2024-07-01 19:37 | disposition home or self-care (01) ==
PROVIDERS: Emergency Provider Physician Assistant
DX: I10 Essential (primary) hypertension (principal)
CPT/HCPCS: 36415; 80053; 85025; 93005; 99284

== ENCOUNTER 2024-11-15 08:41 | Outpatient (CLI) | payer OTHER, SELFPAY ==
--- NOTE | ~2024-11-15 | US_ITS ---
Thyroid ultrasound. Clinical History: Thyroid nodule COMPARISON: 11/11/2022 Findings: Real-time sonography of the thyroid gland was performed. The right lobe measures 4.9 x 1.7 x 2.0 cm. The left lobe measures 5.9 x 2.3 x 1.7 cm. The isthmus is 8 mm in AP diameter. There is an 8 mm hyperechoic solid nodule at the left upper pole. There is a 1.5 cm isoechoic solid n odule at the left midpole posteriorly. Thyroid parenchyma otherwise is diffusely heterogeneous. Impression: Diffusely heterogeneous thyroid gland with essentially stable 1.5 cm left lower pole thyroid nodule. Additional 8 mm left thyroid pole nodule is not as well-seen on the prior exam, but given small size and hyper echogenicity, no definite further follow-up required. Reviewed, dictated and finalized at location . Impression: Diffusely heterogeneous thyroid gland with essentially stable 1.5 cm left lower pole thyroid nodule. Additional 8 mm left thyroid pole nodule is not as well-s een on the prior exam, but given small size and hyper echogenicity, no definite further follow-up required.
== END 2024-11-15 08:42 | disposition home or self-care (01) ==
PROVIDERS: PCP Nurse Practitioner; Visit Provider Nurse Practitioner
DX: E04.2 Nontoxic multinodular goiter (principal)
CPT/HCPCS: 76536